=== PATIENT | female | born 1995 | race Caucasian/White ===

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

== ENCOUNTER 2019-05-03 04:07 | Emergency (ER) | payer OTHER, MEDICAID ==
[~2019-05-03] VITALS: Ht 170.2 cm; Wt 77.7 kg
[~2019-05-03 04:07] MED LIST changes: -CITA20TA5 PO; +CITA20TA6 PO; +FLUO20TA25 PO; +ONDA4TAB7 PO; +PROC5TAB2 PO; +PROM25SU35 PR
--- NOTE | 2019-05-03 05:15 | NUR ---
PT RESTING COMFORTABLY. NO NEEDS AT THIS TIME.
[2019-05-03 05:18] VITALS: BP 120/84
--- NOTE | 2019-05-03 07:20 | NUR ---
Patient/Caregiver given discharge instructions and they have confirmed that they understand the instructions. Patient ambulatory with steady gait. pt left with all personal belongings.
== END 2019-05-03 07:22 | disposition home or self-care (01) ==
LOC: ED 06:32
DX: S39.012A Strain of muscle, fascia and tendon of lower back, initial encounter (principal); F17.210 Nicotine dependence, cigarettes, uncomplicated; X58.XXXA Exposure to other specified factors, initial encounter; Y93.89 Activity, other specified; Y92.89 Other specified places as the place of occurrence of the external cause; Y99.8 Other external cause status
CPT/HCPCS: 72110; 99283

== ENCOUNTER 2019-11-16 20:32 | Emergency (ER) | payer OTHER, MEDICAID ==
[~2019-11-16] VITALS: Ht 170.2 cm; Wt 88.6 kg
[2019-11-16 20:35] VITALS: BP 122/76
== END 2019-11-16 21:46 | disposition home or self-care (01) ==
LOC: ED 20:53
DX: L01.01 Non-bullous impetigo (principal)
CPT/HCPCS: 99283

== ENCOUNTER 2019-11-26 23:23 | Emergency (ER) | payer OTHER, MEDICAID ==
[~2019-11-26] VITALS: Ht 170.2 cm; Wt 87.4 kg
[2019-11-27] MEDS ORDERED: KETOROLAC 30 MG/1 ML IVPush ONE (00:30)
[2019-11-27] MEDS ORDERED: SODIUM CHLORIDE 0.9% 1,000ML IVBOLUS ONE (00:30)
[2019-11-27] MEDS ORDERED: ACETAMINOPHEN 325 MG TABLET PO ONE (00:30)
[2019-11-27] MEDS ORDERED: PROCHLORPERAZINE 5 MG/ML, 2ML IVPush ONE (00:30)
[2019-11-27] MEDS ORDERED: DIPHENHYDRAMINE 50 MG/ML, 1ML IVPush ONE (00:30)
[2019-11-27] MEDS ORDERED: SODIUM CHLORIDE FLUSH 10ML SYR IVF ONE (00:30)
[2019-11-27] MEDS ORDERED: PROCHLORPERAZINE 5 MG/ML, 2ML ONE (00:43)
[2019-11-27] MEDS ORDERED: KETOROLAC 30 MG/1 ML ONE (00:43)
[2019-11-27] MEDS ORDERED: ACETAMINOPHEN 325 MG TABLET ONE (00:43)
[2019-11-27] MEDS ORDERED: DIPHENHYDRAMINE 50 MG/ML, 1ML ONE (00:44)
--- NOTE | 2019-11-27 00:57 | NUR ---
Break RN: patient medicated. warm blanket provided. IVF infusing.
[2019-11-27 02:17] VITALS: BP 113/67
--- NOTE | 2019-11-27 02:19 | NUR ---
Patient given discharge instruction, stated that she understood, also stated that she was going to have her boyfriend come and pick her up as a ride d/t being given bendryal. Stated pain was 2/10 when leaving, VSS.
== END 2019-11-27 02:20 | disposition home or self-care (01) ==
LOC: ED 11-27 00:17
DX: G43.009 Migraine without aura, not intractable, without status migrainosus (principal); R11.2 Nausea with vomiting, unspecified
CPT/HCPCS: 96361; 96374; 96375; 99284; J0780; J1200; J1885; J7030

== ENCOUNTER 2020-06-10 20:39 | Emergency (ER) | payer OTHER, MEDICAID ==
[~2020-06-10] VITALS: Ht 170.2 cm; Wt 100.0 kg
[2020-06-10 20:42] VITALS: BP 148/92
[2020-06-10] MEDS ORDERED: LIDOCAINE-MPF 1%, 5ML ONE (21:50)
[2020-06-10] MEDS ORDERED: NEOSPORIN OINT. PKT 1 PACKET ONE (21:55)
[2020-06-10] MEDS ORDERED: LIDOCAINE-MPF 1%, 5ML INFIL ONE (22:00)
== END 2020-06-10 22:32 | disposition home or self-care (01) ==
LOC: ED 21:09
DX: L03.032 Cellulitis of left toe (principal); L60.0 Ingrowing nail; G43.909 Migraine, unspecified, not intractable, without status migrainosus
CPT/HCPCS: 11730; 99284

== ENCOUNTER 2020-08-24 01:24 | Emergency (ER) | payer OTHER, MEDICAID ==
[~2020-08-24] VITALS: Ht 170.2 cm; Wt 101.0 kg
[2020-08-24 01:28] VITALS: BP 142/96
[2020-08-24] MEDS ORDERED: ACETAMINOPHEN 500 MG TABLET ONE (02:08)
[2020-08-24] MEDS ORDERED: IBUPROFEN 600 MG TABLET ONE (02:08)
[2020-08-24] MEDS ORDERED: IBUPROFEN 600 MG TABLET PO ONE (02:30)
[2020-08-24] MEDS ORDERED: ACETAMINOPHEN 500 MG TABLET PO ONE (02:30)
== END 2020-08-24 02:16 | disposition home or self-care (01) ==
LOC: ED 02:10
DX: L55.1 Sunburn of second degree (principal)
CPT/HCPCS: 99283

== ENCOUNTER 2020-09-28 19:27 | Emergency (ER) | payer OTHER, MEDICAID ==
[~2020-09-28] VITALS: Ht 172.7 cm; Wt 99.0 kg
[2020-09-28 20:17] VITALS: BP 137/99
[2020-09-28 21:15] LABS: BASOPHILS % (AUTO) 0 % (0-1); EOSINOPHILS % (AUTO) 0 % (1-7); LYMPHOCYTES % (AUTO) 13 % (22-44); MEAN CORPUSCULAR HEMOGLOBIN 29.8 pg (27.0-34.8); MEAN CORPUSCULAR HGB CONC 33.5 g/dL (32.4-35.8); MEAN PLATELET VOLUME 9.1 fL (7.4-10.4); MONOCYTES % (AUTO) 4 % (2-9); NEUTROPHILS % (AUTO) 83 % (42-75); PLATELET COUNT 248 x10^3/uL (130-400); RED BLOOD COUNT 5.31 x10^6/uL (3.82-5.3); RED CELL DISTRIBUTION WIDTH 13.7 % (9.6-15.2)
[2020-09-28 21:25] LABS: ALANINE AMINOTRANSFERASE 33 U/L (12-78); ALBUMIN 4.4 g/dL (3.4-5.0); ANION GAP 7 mmol/L (5-15); CALCIUM 9.8 mg/dL (8.5-10.1); CHLORIDE 109 mmol/L (98-107); CREATININE 0.98 mg/dL (0.55-1.02)
[2020-09-28 21:30] LABS: ALKALINE PHOSPHATASE 89 U/L (45-117); BILIRUBIN,TOTAL 0.4 mg/dL (0.2-1.0); TOTAL PROTEIN 8.4 g/dL (6.4-8.2)
--- NOTE | 2020-09-28 22:53 | NUR ---
Urine sent to lab at this time. pt alert and oriented x4, GCS 15, in no acute distress. Pt endorses history of present illness as such: Pt actively nauseous, onset this morning. Vomited multiple times, had dark blood noted in vomit. Pt also had bloody stools. Described stools as dark. Pts grandmother describes her vomit as coffee ground. Pt endorses a hx of GERD, no other abdominal complications or surgeries. No ulces. Pt drinks alcohol daily. States she had a drink of liqour daily. No drug use, although advised that drug screen would result positive for Amphetamines based on her prescription use of Vyvanse. Other hx includes, Depression, Anxiety, Binge eating disorder, Hyperemesis cannabinoid syndrome (denies recent use), Ketosis, Pillars, other non described skin conditions, as well as recurrent PNA. Pt is fully vaccinated from covid. Denies any positive contacts, denies any SOB, chest pain. Denes any hx of DM, CVA, [place]. Pt denies capability of being , (Depo).
[2020-09-28] MEDS ORDERED: METOCLOPRAMIDE 10MG TABLET PO ONE (23:30)
[2020-09-28] MEDS ORDERED: METOCLOPRAMIDE 10MG TABLET ONE (23:42)
--- NOTE | 2020-09-28 23:48 | NUR ---
Patient/Caregiver given discharge instructions and they have confirmed that they understand the instructions. Patient ambulatory with steady gait. NAD, all questions answered appropriately, denies additional needs at this time. No personal belongings left in room after discharge.
[2020-09-29] MEDS ORDERED: PROMETHAZINE 25 MG/ML, 1ML ONE (00:25)
[2020-09-29] MEDS ORDERED: PROMETHAZINE 25 MG/ML, 1ML IM ONE (01:00)
== END 2020-09-28 23:59 | disposition home or self-care (01) ==
LOC: ED 23:30
DX: K62.5 Hemorrhage of anus and rectum (principal); R11.2 Nausea with vomiting, unspecified; K21.9 Gastro-esophageal reflux disease without esophagitis; F17.200 Nicotine dependence, unspecified, uncomplicated
CPT/HCPCS: 36415; 80053; 83690; 84703; 85025; 99283; Q0181; 96372; J2550